=== PATIENT | male | born 1985 | race Caucasian/White ===

== ENCOUNTER 2020-08-14 12:05 | Outpatient (CLI) | payer OTHER ==
--- NOTE | 2020-08-14 13:46 | ULT ---
Ultrasound scrotum with color and spectral Doppler imaging: HISTORY: Pain and tightening and upper legs and scrotum COMPARISON: None FINDINGS: Right testes:4.7 x 2.7 x 2.2 cm Left testes:4.5 x 2.2 x 2.9 cm Epididymal regions:Within normal limits. Hydrocele:Trace right-sided hydrocele. Scrotal wall:Within normal limits. Vascular duplex demonstrates arterial inflow and venous outflow. No evidence for testicular torsion. Evidence for left-sided varicocele. No evidence for solid intratesticular or extratesticular mass. IMPRESSION: Trace right-sided hydrocele. Evidence for left-sided varicocele
== END 2020-08-14 12:06 | disposition home or self-care (01) ==
LOC: BICULT 12:05
PROVIDERS: ATTEND Nurse Practitioner Family
DX: N50.82 Scrotal pain (principal); I86.1 Scrotal varices
CPT/HCPCS: 76870; 93976